=== PATIENT | male | born 1965 | race Caucasian/White ===

== ENCOUNTER → 2020-03-11 | Outpatient (CLI) | payer MEDICARE, MEDICAID ==
--- NOTE | 2020-03-11 14:04 | Diagnostic Imaging Report ---
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 Study is performed for initial staging. TECHNIQUE: Serum blood glucose level at the time of injection is 89 mg/dL. Patient was administered 15.4 mCi F-18 FDG intravenously in the left antecubital location and PET imaging was performed from the top of the skull to mid thighs. Noncontrast CT was also performed for attenuation correction and anatomic correlation. COMPARISON: No prior imaging is available for comparison. FINDINGS: There appears to be symmetric activity within the brain. There is some abnormal uptake in the right supraclavicular location with SUV max of approximately 6. The soft tissue at this location measures approximately 2.9 cm AP diameter. There is significant abnormal hypermetabolic activity throughout the mediastinum, particularly in the right paratracheal location as well as anterior upper mediastinal region. Conglomerate of activity demonstrates an SUV max of approximately 6. This does extend towards the right hilum. Left hilum is unremarkable for metabolic activity. There is a soft tissue nodule in the lower anterior mediastinum measuring 1.7 cm which does show metabolic activity with SUV max of approximately 4. There is activity within the right lateral approximately sixth rib. Parenchymal evaluation does show area of consolidation in the medial right upper lobe. There is bullous lung disease in bilateral upper lobes. There are areas of linear scarring or bands in the bilateral upper lobes as well. Abdomen and pelvis demonstrate physiologic activity in the GI and tracts. There are hypermetabolic foci in the upper abdomen. Hypermetabolic focus near the pancreatic head demonstrates SUV max of 7.4. There is some hypermetabolic activity along the posterior surface of the pancreatic body and tail. These could represent hypermetabolic lymph nodes in the upper abdomen. Correlation with CT would be needed. There is a hypermetabolic focus in the midline of the pelvis with SUV max of 6.6. Right iliac bone hypermetabolism is seen. More inferiorly in the pelvis demonstrates a hypermetabolic right obturator node with SUV max of 6.5. This node measures 1.7 cm in diameter. Tiny hypermetabolic left obturator node is seen with borderline activity with SUV max of 3.5. There is some abnormal activity identified in the subcutaneous fat of the upper anterior right thigh with SUV max of 6.4. Soft tissue nodule at this location measures 1.9 cm. IMPRESSION: Large hypermetabolic mediastinal mass, consistent with patient's known lung neoplasm. There are numerous additional hypermetabolic foci, as described. This includes the right supraclavicular region as well as lower anterior mediastinum, upper abdomen, as well as the pelvis. There are osseous lesions involving the right iliac bone and right-sided rib. There is a subcutaneous nodule in the upper anterior right thigh as well. These are all consistent with neoplastic process. Dictated by: Dictated on workstation # [id number]
== END ==
LOC: RAD 11:12
PROVIDERS: ATTEND Internal Medicine Hematology & Oncology
DX: C34.91 Malignant neoplasm of unspecified part of right bronchus or lung (principal); C79.31 Secondary malignant neoplasm of brain

== ENCOUNTER 2020-03-19 14:53 | Outpatient (RCR) | payer MEDICARE, MEDICAID ==
[2020-03-10 11:31] LABS: BASOPHILS % (AUTO) 0 % (0-10); EOSINOPHILS % (AUTO) 1 % (0-10); HEMATOCRIT 39 % (40-54); HEMOGLOBIN 13.9 G/DL (13.3-17.7); LYMPHOCYTES # (AUTO) 1.2 X 10^3 (1.0-4.0); LYMPHOCYTES % (AUTO) 22 % (12-44); MEAN CORPUSCULAR HEMOGLOBIN 29 PG (25-34); MEAN CORPUSCULAR HGB CONC 36 G/DL (32-36); MEAN CORPUSCULAR VOLUME 81 FL (80-99); MEAN PLATELET VOLUME 8.1 FL (7.4-10.4); MONOCYTES # (AUTO) 0.6 X 10^3 (0.0-1.0); MONOCYTES % (AUTO) 11 % (0-12); NEUTROPHILS # (AUTO) 3.4 X 10^3 (1.8-7.8); NEUTROPHILS % (AUTO) 66 % (42-75); PLATELET COUNT 393 10^3/uL (130-400); RED CELL DISTRIBUTION WIDTH 13.5 % (10.0-14.5); WHITE BLOOD COUNT 5.2 10^3/uL (4.3-11.0)
[2020-03-10 11:51] LABS: ALANINE AMINOTRANSFERASE 24 U/L (0-55); ALBUMIN 4.2 GM/DL (3.2-4.5); ALKALINE PHOSPHATASE 100 U/L (40-136); BILIRUBIN,TOTAL 0.2 MG/DL (0.1-1.0); BUN/CREATININE RATIO 10; CALCIUM 9.3 MG/DL (8.5-10.1); CARBON DIOXIDE 20 MMOL/L (21-32); CHLORIDE 84 MMOL/L (98-107); CREATININE SERUM 0.73 MG/DL (0.60-1.30); GFR ESTIMATED > 60; GLUCOSE 102 MG/DL (70-105); POTASSIUM 4.2 MMOL/L (3.6-5.0); TOTAL PROTEIN 8.2 GM/DL (6.4-8.2)
[2020-03-10 12:02] LABS: SODIUM 115 MMOL/L (135-145)
== END 2020-04-01 16:26 | disposition home or self-care (01) ==
LOC: ONC 14:53
PROVIDERS: ATTEND Internal Medicine Hematology & Oncology
DX: C34.11 Malignant neoplasm of upper lobe, right bronchus or lung (principal); C79.31 Secondary malignant neoplasm of brain; C77.9 Secondary and unspecified malignant neoplasm of lymph node, unspecified; I10 Essential (primary) hypertension; A31.9 Mycobacterial infection, unspecified; E87.1 Hypo-osmolality and hyponatremia; R11.2 Nausea with vomiting, unspecified; R19.7 Diarrhea, unspecified; F17.210 Nicotine dependence, cigarettes, uncomplicated
CPT/HCPCS: 80053; 82378; 83615; 85025; 99213; 99214